=== PATIENT | female | born 1985 | race Caucasian/White ===

== ENCOUNTER → 2018-03-09 | Outpatient (CLI) | payer BC ==
[~2018-03-09] VITALS: Ht 165.1 cm; Wt 101.6 kg
[~2018-03-09] MED LIST: ANTIVERT25 MG PO; MAGNESIUM400 M1 PO; NEURONTIN100 MG PO; TYLENOL EXTRA500 MG PO
== END | disposition home or self-care (01) ==
LOC: AMB 12:49
PROC: 0DJD8ZZ Inspection of Lower Intestinal Tract, Via Natural or Artificial Opening Endoscopic (ICD-10-PCS; principal; 2018-03-09)
DX: K64.8 Other hemorrhoids (principal); K92.1 Melena; R73.03 Prediabetes; F41.9 Anxiety disorder, unspecified; Z87.891 Personal history of nicotine dependence
CPT/HCPCS: J2250